=== PATIENT | female | born 1975 | race Caucasian/White ===

== ENCOUNTER 2023-12-15 12:51 | Emergency (ER) | payer OTHER, SELFPAY ==
[2023-12-15 12:53] VITALS: BP 171/111
[2023-12-15 13:17] VITALS: BMI 48.3
[2023-12-15 13:27] VITALS: BP 135/79
[2023-12-15 13:36] LABS: % Basophils 1.3 % (0-2); % Eosinophils 4.3 % (0-6); % Immature Granulocytes 0.4 % (0-0.5); % Lymphocytes 33.3 % (20.5-51.1); % Monocytes 14.8 % (1.7-9.3); % Neutrophils 45.9 % (42.2-75.2); Absolute Basophils 0.1 10^3/uL (0-0.2); Absolute Eosinophils 0.2 10^3/uL (0-0.7); Absolute Lymphocytes 1.8 10^3/uL (1.2-3.4); Absolute Monocytes 0.8 10^3/uL (0.1-0.6); Absolute Neutrophils 2.4 10^3/uL (1.4-6.5); Hematocrit 43.3 % (37.0-47.0); Mean Corp Hgb Conc. 34.6 g/dL (33.0-37.0); Mean Corpuscular Hgb 30.8 pg (27.0-31.0); Mean Corpuscular Volume 88.9 fL (81.0-99.0); Mean Platelet Volume 9.6 fL (7.4-10.4); Nucleated Red Blood Cells % 0 %; Platelet Count 216 10^3/uL (130-400); Red Blood Cell Count 4.87 10^6/uL (4.20-5.40); Red Cell Dist. Width 12.9 % (11.5-14.5); White Blood Cell Count 5.3 10^3/uL (4.8-10.8)
[2023-12-15 13:58] LABS: ALT (SGPT) 71 U/L (0-35); AST (SGOT) 57 U/L (14-36); Albumin 4.2 g/dl (3.5-5.0); Alkaline Phosphatase 79 U/L (38-126); Blood Urea Nitrogen 7 mg/dl (7-17); Calcium 8.9 mg/dl (8.4-10.2); Carbon Dioxide 24 mmol/L (22-30); Chloride 104 mmol/L (98-107); Estimated Creatinine Clearance > 125 ml/min; Glucose 121 mg/dl (70-99); Potassium 3.8 mmol/L (3.5-5.1); Sodium 134 mmol/L (135-145); Total Protein 6.8 g/dl (6.3-8.2); eGFR > 60.00
[2023-12-15 14:00] VITALS: BP 136/85
--- NOTE | 2023-12-15 14:29 | ED.GENMED ---
History of Present Illness
General
Chief Complaint: Cough
Source: patient
Exam Limitations: none
Time Seen by Provider: 12/15/23 14:28
Nursing documentation reviewed up to this point in time: agreed with
Travel History
Have you had any contact with someone who has COVID-19?: No
Do you have any symptoms of coronavirus? Fever > 100 degrees, chills, cough, shortness of breath, sore throat, loss of taste or smell, muscle aches, or headache?: Yes
Symptoms:: shortness of breath, cough
History of Present Illness
History of Present Illness:
48-year-old female with history of GERD, on Eliquis for low protein S blood disorder, hysterectomy 2020 for endometrial cancer, anemia presents stating she had a bad cough for the past 5 days after being with her nephew who was recently diagnosed
with bronchitis and pneumonia. She states she had Cipro leftover and she has been taking 500 mg twice a day for the last 5 days with no relief of her cough. She denies fever or chills. Denies nausea or vomiting. She has had no runny nose. Her
cough is associated with lots of wheezing but nonproductive. She does have coughing spasms.
Past History
Past History
ED Past Medical History: CVA, GERD and Other (Bronchitis several times)
ED Past Surgical History: Gynecological
Social History
Tobacco: Non-smoker
Alcohol: Occasional
Drug: None
Personal: Single
Living: alone
Employment: Employed
Review of Systems
Review of Systems
Allergies reviewed?: Yes
All Other Systems: ROS reviewed and negative except as documented in HPI and ROS
Constitutional: Denies fever or chills
EENT: Denies sore throat
Respiratory: Reports cough; Denies trouble breathing
Cardiac: Denies chest pain
ABD/GI: Denies abdominal pain or nausea
Musculoskeletal: Reports no symptoms
Skin: Reports no symptoms
Neurological: Reports no symptoms
Phy Exam
Physical Exam
Physical Exam:
GENERAL: No acute distress. A&Ox3.
CONSTITUTIONAL: Afebrile.
EYES: PERRL, conjunctivae normal
ENMT: moist mucus membranes, Pharynx nl
RESPIRATORY: Regular respirations, nonlabored, lungs with wheezes throughout. Frequent coarse cough
CARDIOVASCULAR: Regular rate and rhythm, no murmurs, no rubs.
GI: Soft, nontender
MUSCULOSKELETAL: Moves with ease. Well perfused.
SKIN: Warm, dry, pink
PSYCH: Normal mood and affect. Well kept, interactive and appropriate
NEUROLOGIC: Awake, alert and oriented. No focal neurological deficits
Course
Orders/Labs/Results
Orders:
Orders
12/15/23 13:27
CMP [Comprehensive Metabolic Panel] Urgent
Complete Blood Count/With Diff Urgent
12/15/23 14:36
Dexamethasone Sod Phosphate [Decadron] 10 mg IV NOW STA
Ipratropium/Albuterol Sulfate [Duoneb] 3 ml INH R NOW STA
CR Chest - 2 Views Urgent
Comment:
Reason For Exam: cough, wheezing
12/15/23 16:09
Ipratropium/Albuterol Sulfate [Duoneb] 3 ml INH R NOW STA
Abnormal Lab Results
12/15/23
13:27
Absolute Monos (auto) 0.8 H 10^3/uL
(0.1-0.6)
Monocytes % 14.8 H %
(1.7-9.3)
Sodium 134 L mmol/L
(135-145)
Creatinine 0.5 L mg/dL
(0.6-1.0)
Glucose 121 H mg/dl
(70-99)
AST 57 H U/L
(14-36)
ALT 71 H U/L
(0-35)
12/15/23 13:27
12/15/23 13:27
Vital Signs
Initial and Last Documented VS:
Initial Vital Signs
Temp Pulse Resp BP Pulse Ox
98.9 F 101 18 171/111 94
12/15/23 12:53 12/15/23 12:53 12/15/23 12:53 12/15/23 12:53 12/15/23 12:53
Last Documented Vital Signs
Temp Pulse Resp BP Pulse Ox
98.9 F 94 15 129/70 92
12/15/23 12:53 12/15/23 16:30 12/15/23 16:30 12/15/23 16:00 12/15/23 16:30
MDM/Problems Addressed
Differential Diagnosis Includes:
Bronchitis, pneumonia
MDM/Problems Addressed:
48-year-old female with history of GERD, on Eliquis for low protein S blood disorder, hysterectomy 2020 for endometrial cancer, anemia presents stating she had a bad cough for the past 5 days after being with her nephew who was recently diagnosed
with bronchitis and pneumonia. She states she had Cipro leftover and she has been taking 500 mg twice a day for the last 5 days with no relief of her cough. She denies fever or chills. Denies nausea or vomiting. She has had no runny nose. Her
cough is associated with lots of wheezing but nonproductive. She does have coughing spasms.
Afebrile
4:06 PM
CBC normal
CMP with no clinically significant abnormality
Chest x-ray: Radiology report read: NAD
Feeling much better after DuoNeb and Decadron. Still with some scattered expiratory wheezing will give another neb.
Rx for Prednisone and Albuterol inhaler sent to her pharmacy
*Critical Care Note
Total Time (30-74mins, 75-104mins- exclusive of procedures): Not Applicable
ED Attending Note
-
Portions of this chart may have been created with voice recognition software.� Occasional wrong word or��sound alike� substitutions may have occurred due to the inherent limitations of voice recognition software.
Discharge Plan
Departure
Patient Disposition: Home (Routine Discharge)
Date of Disposition: 12/15/23
Time of Disposition: 16:31
Patient with high blood pressure during this ER visit?: No
Condition: Good
Discharge Problem:
Acute bronchitis
Instructions: Acute Bronchitis, Adult (DC)
Prescriptions:
New
albuterol sulfate 90 mcg/actuation HFA aerosol inhaler
2 puff inhalation Q6H PRN (Reason: shortness of breath or wheezing) Qty: 6.7 0RF
prednisone 20 mg tablet
40 mg PO DAILY Qty: 10 0RF
No Action
atorvastatin 80 MG tablet
80 mg PO QPM Qty: 30 0RF
cyanocobalamin (vitamin B-12) 1,000 MCG tablet
1,000 mcg PO DAILY 0RF
aspirin 81 MG tablet,chewable
81 mg PO DAILY 0RF
cholecalciferol (vitamin D3) 1,000 UNITS tablet
1,000 units PO DAILY Qty: 30 0RF
ondansetron 4 MG tablet,disintegrating
4 mg PO TIDPRN PRN (Reason: nausea) Qty: 12 0RF
Referrals:
Eligio Garduno MD [Family Provider] - As needed
Activity Restrictions/Additional Instructions:
As we discussed, I sent a prescription to your pharmacy for prednisone 40 mg a day for 5 days and also for albuterol inhaler to use as needed for wheezing/cough
Start the prednisone tomorrow as you were given a dose of steroid here today.
See your doctor in 3 to 5 days if you are not much better by then.
Interventions
Interventions:
*Risk Screen - Suicide Last Done: 12/15/23 12:53
*General Assessment Last Done: 12/15/23 12:53
*Neglect/Abuse Screening Last Done: 12/15/23 12:53
*ED COVID-19 Vaccine History Last Done: 12/15/23 13:18
*Nursing Disposition Last Done: 12/15/23 16:58
ED- Pulmonary Assessment Last Done: 12/15/23 14:40
Discharge Date and Time
Discharge Date/Time: 12/15/23 16:58
Print Language: KYRGYZ
[2023-12-15] MEDS: DECADRON 10 MG IV (14:45)
[2023-12-15] MEDS: DUONEB 3 ML INH ×2 (14:45→16:12)
[2023-12-15 15:00] VITALS: BP 125/74
[2023-12-15 16:00] VITALS: BP 129/70
== END 2023-12-15 16:58 | disposition home or self-care (01) ==
LOC: EMR 12:51
PROVIDERS: Emergency Medicine; EMERGENCY PHYSICIAN Emergency Medicine; FAMILY PHYSICIAN Internal Medicine
DX: J20.9 Acute bronchitis, unspecified (principal); K21.9 Gastro-esophageal reflux disease without esophagitis; D64.9 Anemia, unspecified; Z79.01 Long term (current) use of anticoagulants; Z86.73 Personal history of transient ischemic attack (TIA), and cerebral infarction without residual deficits
CPT/HCPCS: 99284; 94640; 96374; 71046; 80053; 85025

== ENCOUNTER → 2023-12-26 13:20 | Outpatient (REF) | payer OTHER, SELFPAY | LOC: RAD 13:20 | PROVIDERS: ATTENDING PHYSICIAN Internal Medicine; REFERRING PHYSICIAN Internal Medicine Hematology & Oncology | DX: R09.02 Hypoxemia (principal) | CPT/HCPCS: 71046; 78582; A9540; A9567 ==

== ENCOUNTER 2023-12-26 18:10 | Emergency (ER) | payer OTHER, SELFPAY ==
--- NOTE | 2023-12-26 22:38 | ED.MUSCINJ ---
HPI-Injury
General
Chief Complaint: Extremity Pain (non-traumatic)
Source: patient
Exam Limitations: none
Time Seen by Provider: 12/26/23 22:38
Nursing documentation reviewed up to this point in time: agreed with
Travel History
Have you had any contact with someone who has COVID-19?: No
Do you have any symptoms of coronavirus? Fever > 100 degrees, chills, cough, shortness of breath, sore throat, loss of taste or smell, muscle aches, or headache?: No
History of Present Illness-Injury
Initial Injury comments:
48 yo female with history of low protein S, on Eliquis, states she had multiple sticks for IV access attempts earlier today as she was to get a VQ scan as she had bronchitis. One of the sticks in the mid right anterior forearm is a quarter sized
bruise that she says earlier was red, raised and tender. She states those symptoms have subsided and now it just looks like a bruise.
Past History
Past History
ED Past Medical History: CVA, GERD, Other (Low protein S , on Eliquis) and Other (Bronchitis several times)
ED Past Surgical History: Gynecological
Social History
Tobacco: Non-smoker
Alcohol: Occasional
Drug: None
Personal: Single
Living: alone
Employment: Employed
Review of Systems
Review of Systems
Allergies reviewed?: Yes
All Other Systems: ROS reviewed and negative except as documented in HPI and ROS
Constitutional: Denies fever
Respiratory: Denies trouble breathing
Cardiac: Denies chest pain
Skin: Reports other (bruise right forearm at site of IV attempt)
Neurological: Denies weakness or numbness
Phy Exam
Physical Exam
Physical Exam:
GENERAL: No acute distress. A&Ox3.
CONSTITUTIONAL: Afebrile.
RESPIRATORY: Regular respirations, nonlabored, lungs clear.
CARDIOVASCULAR: Regular rate and rhythm, no murmurs, no rubs.
MUSCULOSKELETAL: Moves with ease. Well perfused.
SKIN: Warm, dry, pink, Quarter sized area of ecchymosis mid anterior forearm. Surrounding skin is normal. Distal neurovascular intact.
PSYCH: Normal mood and affect. Well kept, interactive and appropriate
NEUROLOGIC: Awake, alert and oriented. No focal neurological deficits
Injury Course
Orders/Labs/Results
Orders:
Orders
12/26/23 18:17
US Periph Venous UPPER Ext RT Urgent
Comment:
Reason For Exam: swelling with clotting disorder
MDM/Problems Addressed
Differential Diagnosis Includes:
superficial phlebitis, DVT, bruise
MDM/Problems Addressed:
48 yo female with history of low protein S, on Eliquis, states she had multiple sticks for IV access attempts earlier today as she was to get a VQ scan as she had bronchitis. One of the sticks in the mid right anterior forearm is a quarter sized
bruise that she says earlier was red, raised and tender. She states those symptoms have subsided and now it just looks like a bruise.
Ultrasound negative for DVT. Patient reassured
*Critical Care Note
Total Time (30-74mins, 75-104mins- exclusive of procedures): Not Applicable
ED Attending Note
-
Portions of this chart may have been created with voice recognition software.� Occasional wrong word or��sound alike� substitutions may have occurred due to the inherent limitations of voice recognition software.
Discharge Plan
Departure
Patient Disposition: Home (Routine Discharge)
Date of Disposition: 12/26/23
Time of Disposition: 23:20
Patient with high blood pressure during this ER visit?: No
Condition: Good
Discharge Problem:
Traumatic ecchymosis of right forearm
Instructions: Taking care of bruises
Prescriptions:
No Action
atorvastatin 80 MG tablet
80 mg PO QPM Qty: 30 0RF
cyanocobalamin (vitamin B-12) 1,000 MCG tablet
1,000 mcg PO DAILY 0RF
aspirin 81 MG tablet,chewable
81 mg PO DAILY 0RF
cholecalciferol (vitamin D3) 1,000 UNITS tablet
1,000 units PO DAILY Qty: 30 0RF
ondansetron 4 MG tablet,disintegrating
4 mg PO TIDPRN PRN (Reason: nausea) Qty: 12 0RF
albuterol sulfate 90 mcg/actuation HFA aerosol inhaler
2 puff inhalation Q6H PRN (Reason: shortness of breath or wheezing) Qty: 6.7 0RF
prednisone 20 mg tablet
40 mg PO DAILY Qty: 10 0RF
Referrals:
Eligio Garduno MD [Family Provider] - As needed
Activity Restrictions/Additional Instructions:
we discussed, your ultrasound shows no clots.
Interventions
Interventions:
*Risk Screen - Suicide Last Done: 12/26/23 23:24
*General Assessment Last Done: 12/26/23 23:24
*Neglect/Abuse Screening Last Done: 12/26/23 23:24
*Nursing Disposition Last Done: 12/26/23 23:29
ED-Musculoskeletal Assessment Last Done: 12/26/23 22:37
ED-Skin Assessment Last Done: 12/26/23 22:37
Discharge Date and Time
Discharge Date/Time: 12/26/23 23:29
Print Language: SWEDISH
[2023-12-26 22:59] VITALS: BP 135/90
[2023-12-26 23:29] VITALS: BP 135/90
== END 2023-12-26 23:29 | disposition home or self-care (01) ==
LOC: EMR 18:10
PROVIDERS: EMERGENCY PHYSICIAN Emergency Medicine; FAMILY PHYSICIAN Internal Medicine
DX: S50.11XA Contusion of right forearm, initial encounter (principal); X58.XXXA Exposure to other specified factors, initial encounter; Z79.01 Long term (current) use of anticoagulants
CPT/HCPCS: 99284; 93971

== ENCOUNTER → 2024-01-10 14:56 | Day surgery (SDC) | payer OTHER, SELFPAY ==
[2024-01-10 09:22] VITALS: BMI 47.8
[2024-01-10 09:23] VITALS: BP 146/104
[2024-01-10 11:27] VITALS: BP 123/86
[2024-01-10 11:30] VITALS: BP 113/82
[2024-01-10 11:45] VITALS: BP 121/83
== END ==
LOC: GI 14:56
PROVIDERS: ATTENDING PHYSICIAN Internal Medicine
DX: D50.9 Iron deficiency anemia, unspecified (principal); K57.30 Diverticulosis of large intestine without perforation or abscess without bleeding; K64.9 Unspecified hemorrhoids; D12.4 Benign neoplasm of descending colon; K62.1 Rectal polyp; K44.9 Diaphragmatic hernia without obstruction or gangrene; K31.89 Other diseases of stomach and duodenum; K29.50 Unspecified chronic gastritis without bleeding
CPT/HCPCS: 45390; 45381; 45380; 45385; 43239; 88305; 88342

== ENCOUNTER 2025-01-28 06:18 | Day surgery (SDC) | payer OTHER, SELFPAY ==
[2025-01-28 10:56] VITALS: BMI 48.6
[2025-01-28 10:57] VITALS: BMI 48.6
[2025-01-28 10:58] VITALS: BP 128/87
[2025-01-28 12:09] VITALS: BP 107/78
[2025-01-28 12:15] VITALS: BP 119/106
[2025-01-28 12:30] VITALS: BP 114/72
== END 2025-01-28 12:57 | disposition home or self-care (01) ==
LOC: GI 06:18
PROVIDERS: ATTENDING PHYSICIAN Internal Medicine
DX: Z12.11 Encounter for screening for malignant neoplasm of colon (principal); K57.30 Diverticulosis of large intestine without perforation or abscess without bleeding; D12.3 Benign neoplasm of transverse colon; K64.8 Other hemorrhoids; Z98.890 Other specified postprocedural states; Z86.0101 Personal history of adenomatous and serrated colon polyps
CPT/HCPCS: 45385; 88305